=== PATIENT | male | born 1980 | race Caucasian/White ===

== ENCOUNTER 2018-04-24 08:42 | Emergency (ER) | payer OTHER ==
--- OUTSIDE RECORDS SUMMARY | 2018-04-24 08:44 | XMS REPORT | Clinical Summary ---
:1980 Author Organization [facility] Address [address] [place] [id number] Care Team Providers Name Role Phone Dosumu Lopez Bergman MD Primary Care Provider [phone] Allergies No Known Allergies Current Medications Prescription Sig. Disp. Refills Start Date End Date Status VYVANSE 30 mg capsule 07/17/2016 Active clonAZEPAM (KlonoPIN) 1 MG tablet 07/17/2016 Active Active Problems No known active problems Encounters Date Type Specialty Care Team Description 09/30/2017 Transcribe Orders Physical Therapy Brian Rodriguez MD Spondylosis without myelopathy or radiculopathy, cervical region (Primary Dx) 05/15/2017 Orders Only Internal Medicine Dosumu Lopez Bergman MD 05/01/2017 Office Visit Internal Medicine Dosumu Routine general medical examination at a health care facility (Primary Dx); Pacheco, Screening for hyperlipidemia; Lopez Screening for diabetes mellitus; MD Ashlyn Screen for STD (sexually transmitted disease); Numerous moles; Attention deficit hyperactivity disorder (ADHD), unspecified ADHD type; Anxiety after 04/23/2017 Family History Medical History Relation Name Comments Breast cancer Father Cancer Father Cancer Mother Skin cancer Mother Relation Name Status Comments Brother Alive Father Alive Mother Alive Social History Tobacco Use Types Packs/Day Years Used Date Current Every Day Smoker Electronic Cigarettes Smokeless Tobacco: Never Used Alcohol Use Drinks/Week oz/Week Comments No Sex Assigned at Date Recorded Not on file Last Filed Vital Signs Vital Sign Reading Time Taken Blood Pressure 114/78 05/01/2017 2:53 PM CDT Pulse 79 05/01/2017 2:53 PM CDT Temperature 36.3 C (97.4 F) 05/01/2017 2:53 PM CDT Respiratory Rate 18 05/01/2017 2:53 PM CDT Oxygen Saturation 98% 05/01/2017 2:53 PM CDT Inhaled Oxygen Concentration - - Weight 72.6 kg (160 lb) 05/01/2017 2:53 PM CDT Height 172.7 cm (5' 8") 05/01/2017 2:53 PM CDT Body Mass Index 24.33 05/01/2017 2:53 PM CDT Plan of Treatment Health Maintenance Due Date Last Done Comments INFLUENZA VACCINE 05/26/2018 Procedures Procedure Name Priority Date/Time Associated Comments Diagnosis RPR SCREEN Routine 05/15/2017 8:56 Results for this AM CDT procedure are in the results section. HEPATITIS C ANTIBODY Routine 05/15/2017 8:56 Results for this AM CDT procedure are in the results section. HIV 1/2 Routine 05/15/2017 8:56 Results for this ANTIGEN/ANTIBODY, AM CDT procedure are in FOURTH GENERATION the results W/RFL section. HEMOGLOBIN A1C Routine 05/15/2017 8:56 Results for this AM CDT procedure are in the results section. CHLAMYDIA/GC, SLADE Routine 05/15/2017 8:56 Results for this AM CDT procedure are in the results section. LIPID PANEL Routine 05/15/2017 8:56 Results for this AM CDT procedure are in the results section. BASIC METABOLIC PANEL Routine 05/15/2017 8:56 Results for this AM CDT procedure are in the results section. CBC WITH PLATELET AND Routine 05/15/2017 8:56 Results for this DIFFERENTIAL AM CDT procedure are in the results section. after 04/23/2017 Results HIV 1/2 ANTIGEN/ANTIBODY, FOURTH GENERATION W/RFL (05/15/2017 8:56 AM) HIV AG/AB 4th gen Non Reactive Non Reactive [facility] Narrative Performed At Performed at:01 - [facility] [address] [place], [place] [id number] Engine Assembly Supervisor: Alfonso Richter MD, Phone:[phone] Performing Organization Address City/State/Zipcode Phone Number [facility] Chlamydia/GC, SLADE (05/15/2017 8:56 AM) Chlamydia trachomatis, SLADE Negative Negative [facility] 02 Neisseria gonorrhoeae, SLADE Negative Negative [facility] 02 Narrative Performed At Performed at:02 - [facility] [place] [facility] [address] [facility] [place], [id number] Engine Assembly Supervisor: Kristen Rubio MD, Phone:[phone] Performing Organization Address [facility] Phone Number [facility] 02 Hepatitis C antibody (05/15/2017 8:56 AM) Hepatitis C Ab <0.1 0.0 - 0.9 s/co ratio [facility] Comment: Negative: < 0.8 Indeterminate: 0.8 - 0.9 Positive: > 0.9 The CDC recommends that a positive HCV antibody result be followed up with a HCV Nucleic Acid Amplification test (849026). Narrative Performed At Performed at: - [facility] [address] [place], [id number] Engine Assembly Supervisor: Alfonso Richter MD, Phone:[phone] Performing Organization Address [facility] Phone Number [facility] RPR screen (05/15/2017 8:56 AM) RPR Non Reactive Non Reactive [facility] Narrative Performed At Performed at: - [facility] [address] [place], [id number] Engine Assembly Supervisor: Alfonso Richter MD, Phone:[phone] Performing Organization Address [facility] Phone Number [facility] CBC with platelet and differential (05/15/2017 8:56 AM) WBC 5.5 3.4 - 10.8 x10E3/uL [facility] RBC 4.85 4.14 - 5.80 x10E6/uL [facility] HGB 14.9 12.6 - 17.7 g/dL [facility] HCT 42.8 37.5 - 51.0 % [facility] MCV 88 79 - 97 fL [facility] MCH 30.7 26.6 - 33.0 pg [facility] MCHC 34.8 31.5 - 35.7 g/dL [facility] RDW 13.3 12.3 - 15.4 % [facility] Platelet count 262 150 - 379 x10E3/uL [facility] Neutrophils 57 % [facility] Lymphocytes 34 % [facility] Monocytes 6 % [facility] Eosinophils 3 % [facility] Basophils 0 % [facility] Neutrophils, absolute 3.1 1.4 - 7.0 x10E3/uL [facility] Lymphocytes, absolute 1.9 0.7 - 3.1 x10E3/uL [facility] Monocytes, absolute 0.3 0.1 - 0.9 x10E3/uL [facility] Eosinophils, absolute 0.1 0.0 - 0.4 x10E3/uL [facility] Basophils, absolute 0.0 0.0 - 0.2 x10E3/uL [facility] Immature granulocytes 0 % [facility] Immature grans (abs) 0.0 0.0 - 0.1 x10E3/uL [facility] Narrative Performed At [facility]formed at: [facility] [address] [place], [place] [id number] Engine Assembly Supervisor: Alfonso Richter MD, Phone:[phone] Specimen Comment: A duplicate report has been generated due to demographic updates. Performing Organization Address [facility] Phone Number [facility] Hemoglobin A1c (05/15/2017 8:56 AM) Hemoglobin A1C 5.4 4.8 - 5.6 % [facility] Comment: Pre-diabetes: 5.7 - 6.4 Diabetes: >6.4 Glycemic control for adults with diabetes: <7.0 Narrative Performed At Performed at: [id number] Engine Assembly Supervisor: Alfonso Richter MD, Phone:[phone] Performing Organization Address [facility] Phone Number [facility] Lipid panel (05/15/2017 8:56 AM) Cholesterol 198 100 - 199 mg/dL [facility] Triglycerides 116 0 - 149 mg/dL [facility] HDL cholesterol 38 (L) >39 mg/dL [facility] VLDL cholesterol devika 23 5 - 40 mg/dL [facility] LDL cholesterol calculated 137 (H) 0 - 99 mg/dL [facility] Non-HDL cholesterol 160 (H) 0 - 129 mg/dL [facility] Narrative Performed At Performed at: [id number] Engine Assembly Supervisor: Alfonso Richter MD, Phone:[phone] Performing Organization Address [facility] Phone Number [facility] Basic metabolic panel (05/15/2017 8:56 AM) Glucose 86 65 - 99 mg/dL [facility] BUN, whole blood 16 6 - 20 mg/dL [facility] Creatinine 1.00 0.76 - 1.27 mg/dL [facility] EGFR Non-Afr. Latvian 96 >59 mL/min/1.73 [facility] EGFR 111 >59 mL/min/1.73 [facility] BUN/creatinine ratio 16 9 - 20 [facility] Sodium 141 134 - 144 mmol/L [facility] Potassium 4.6 3.5 - 5.2 mmol/L [facility] Chloride 99 96 - 106 mmol/L [facility] CO2 27 18 - 29 mmol/L [facility] Calcium 9.7 8.7 - 10.2 mg/dL [facility] Narrative Performed At Performed at:01 - [facility] [address] [place], [id number] Engine Assembly Supervisor: Alfonso Richter MD, Phone:[phone] Performing Organization Address City/State/Zipcode Phone Number [facility] after 04/23/2017 Insurance Payer Benefit Plan / Group Subscriber ID Type Phone Address CIGNA CIGNA HMO/POS xxxxxxxxxxx HMO Home: [id number] [phone] [address]
[2018-04-24] MEDS ORDERED: TETANUS & DIPHTHERIA TOX,ADULT 0.5 ML VIAL ONE (08:56)
[2018-04-24] MEDS ORDERED: LIDOCAINE 1% MPF 5 ML VIAL ONE (09:01)
[2018-04-24] MEDS ORDERED: LIDOCAINE 1% MPF 2 ML AMPULE ONE ×2 (09:03→09:14)
[2018-04-24] MEDS ORDERED: MEPERIDINE HCL 50 MG/ML AMP ONE (09:25)
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
--- NOTE | 2018-04-24 11:14 | RAD REPORT ---
EXAM DESCRIPTION: RAD - Tib Fib Left - 04/24/2018 9:31 am CLINICAL HISTORY: Soft tissue laceration 1 hour prior to admission COMPARISON: None. FINDINGS: No fracture is identified. There is no dislocation or periosteal reaction noted. No acute or suspicious bony finding. By report laceration is medial mid tibial level. No foreign body seen. Soft tissue swelling is presen t anteriorly. Punctate air densities are seen in the soft tissues anterior to the proximal tibia. Thi s is believed to be related to the laceration. Gas-forming infectious process would not be present im mediately following the injury. IMPRESSION: Left leg soft tissue wound as detailed. No foreign body. No bone abnormality.
== END 2018-04-24 10:48 | disposition home or self-care (01) ==
LOC: ER 08:42
PROC: 0HQLXZZ Repair Left Lower Leg Skin, External Approach (ICD-10-PCS; principal; 2018-04-24)
DX: S81.812A Laceration without foreign body, left lower leg, initial encounter (principal); W22.8XXA Striking against or struck by other objects, initial encounter; Y93.89 Activity, other specified; Y92.814 Boat as the place of occurrence of the external cause; Y99.8 Other external cause status
CPT/HCPCS: 90714; 96372; 99284; J2001; J2175